=== PATIENT | male | born 1995 | race Caucasian/White ===

== ENCOUNTER 2021-07-14 23:35 | Day surgery (SDC) | payer SELFPAY ==
[~2021-07-14] VITALS: Ht 167.6 cm; Wt 68.6 kg
[2021-07-15 00:44] LABS: BASO % 0.1 % (0.0-2.0); EOS # 0.1 K/mm3 (0.0-0.7); EOS % 0.4 % (0.0-4.0); GRAN # 12.3 K/mm3 (1.4-6.5); HEMATOCRIT 40.4 % (42.0-52.0); HEMOGLOBIN 14.4 g/dl (13.5-18.0); LYMPH # 0.7 K/mm3 (1.2-3.4); LYMPH % 4.8 % (20.0-51.0); MEAN CELL VOLUME 81 fl (80.0-100.0); MEAN CORPUSCULAR HEMOGLOBIN 29 pg (27-31); MEAN CORPUSCULAR HGB CONC 36 g/dl (33.0-37.0); MEAN PLATELET VOLUME 11.1 fl (7.4-10.4); MONO # 0.7 K/mm3 (0.1-0.6); MONO % 5.3 % (1.7-9.3); PLATELET COUNT 185 K/mm3 (130-400); RED BLOOD COUNT 4.97 M/mm3 (4.20-5.60); REDCELL DISTRIBUTION WIDTH-CV 11.9 % (11.5-14.5)
[2021-07-15 01:00] LABS: ALANINE AMINOTRANSFERASE 10 U/L (0-55); ALBUMIN 4.2 gm/dL (3.5-5.0); ALKALINE PHOSPHATASE 88 U/L (40-150); ANION GAP 11 mmol/L (7-16); AST,SGOT 19 U/L (5-34); BLOOD UREA NITROGEN 19 mg/dL (9-21); CALCIUM 8.8 mg/dL (8.4-10.2); CARBON DIOXIDE 24 mmol/L (22-29); CHLORIDE 105 mmol/L (98-107); CREATININE, serum 1.03 mg/dL (0.72-1.25); GLUCOSE 129 mg/dL (70-99); LIPASE 14 U/L (8-78); POTASSIUM 3.5 mmol/L (3.5-4.5); SODIUM 140 mmol/L (136-145); TOTAL PROTEIN 7.1 gm/dL (6.2-8.1)
[2021-07-15 01:09] LABS: BILIRUBIN,TOTAL < 1.0 mg/dL (0.2-1.2)
[2021-07-15] MEDS ORDERED: PROTONIX 40MG T40 MG PO (05:56)
[2021-07-15 09:05] VITALS: BP 130/67; PULSE 97; TEMP 98
[2021-07-15] MEDS ORDERED: NORCO 325 MG-51 TAB PO (12:17)
[2021-07-15 13:40] VITALS: BP 125/58; PULSE 103; TEMP 98.1
[2021-07-15 13:55] VITALS: BP 135/62; PULSE 101
[2021-07-15 14:10] VITALS: BP 117/65; PULSE 102
[2021-07-15 14:18] VITALS: BP 105/65; PULSE 94; TEMP 98.6
--- NOTE | 2021-07-15 14:58 | NUR ---
1340 PT RETURNED TO BAY 5 VIA CART. ALERT AND ORIENTED. MONITORS ATTACHED, INTERVALS AND ALARMS SET. VSS. OPERATIVE SITES X3 CLEAN AND WELL APPROXIMATED. WATER AND MUFFIN PROVIDED. PT DENIES PAIN OR NAUSEA. 1355 VSS. TOLERATING FOOD AND DRINK WELL. DENIES DISCOMFORT. 1410 VSS. REVIEWED DISCHARGE INSTRUCTIONS WITH PT, FAMILY AND FAMILY FRIEND. ANSWERED ALL QUESTIONS. PROVIDED CONTACT INFOR FOR ANY QUESTIONS OR CONCERNS. F/U APT MADE AND REMINDER GIVEN TO PT. 1435 PT UP TO RESTROOM, ABLE TO VOID WITHOUT DIFFICULTY. IV REMOVED WITHOUT COMPLICATIONS. PT ALLOWED TO DRESS. 1458 PT TRANSFERED VIA WHEELCHAIR TO PERSONAL VEHICLE TO BE DRIVEN HOME BY FAMILY FRIEND.
== END 2021-07-15 14:58 | disposition home or self-care (01) ==
LOC: COL.ER 23:35 → SDCO 07-15 08:10
PROVIDERS: Personal Emergency Response Attendant
DX: K35.80 Unspecified acute appendicitis (principal)
CPT/HCPCS: C9113; J0330; J0690; J0694; J1100; J1885; J2270; J2405; J2704; J3010; J3480; J7030; Q9967